=== PATIENT | female | born 1960 | race Two or more races ===

== ENCOUNTER 2022-10-12 14:19 | Emergency (ER) | payer MEDICAID, OTHER ==
[2022-10-12] MEDS ORDERED: ACETAMINOPHEN 500 MG TAB PO ONE (16:15)
[2022-10-12 17:19] VITALS: BP 121/70
[2022-10-12] MEDS ORDERED: METH750T22 PO ×2 (17:48→17:57)
[2022-10-12] MEDS ORDERED: IBUP800T27 PO ×2 (17:48→17:57)
== END 2022-10-12 17:59 | disposition home or self-care (01) ==
LOC: EDBD 14:19 → ER 14:19
DX: S53.402A Unspecified sprain of left elbow, initial encounter (principal); S16.1XXA Strain of muscle, fascia and tendon at neck level, initial encounter; S46.912A Strain of unspecified muscle, fascia and tendon at shoulder and upper arm level, left arm, initial encounter; V49.9XXA Car occupant (driver) (passenger) injured in unspecified traffic accident, initial encounter; Y93.89 Activity, other specified; Y92.89 Other specified places as the place of occurrence of the external cause; Y99.8 Other external cause status
CPT/HCPCS: 29105; 72040; 73030; 73080